=== PATIENT | male | born 1985 | race Two or more races ===

== ENCOUNTER 2022-02-05 14:56 | Emergency (ER) | payer OTHER ==
[~2022-02-05] VITALS: Ht 185.4 cm; Wt 97.5 kg
[2022-02-05 15:17] VITALS: BP 143/84
[2022-02-05] MEDS ORDERED: CYCL10TA9 PO (15:36)
[2022-02-05] MEDS ORDERED: CYCLOBENZAPRINE 10 MG TABLET ONE (15:38)
[2022-02-05] MEDS ORDERED: IBUPROFEN 600 MG TABLET ONE (15:38)
--- NOTE | 2022-02-05 15:44 | NUR ---
Patient discharged to home in stable condition. Written and verbal after care instructions given. Patient verbalizes understanding of instruction.
[2022-02-05] MEDS ORDERED: IBUPROFEN 600 MG TABLET PO ONE (16:00)
[2022-02-05] MEDS ORDERED: CYCLOBENZAPRINE 10 MG TABLET PO ONE (16:00)
== END 2022-02-05 15:44 | disposition home or self-care (01) ==
LOC: ER 14:59
DX: M54.41 Lumbago with sciatica, right side (principal); M62.830 Muscle spasm of back
CPT/HCPCS: 99283; A6403